=== PATIENT | female | born 1975 | race American Indian/Alaskan Native ===

== ENCOUNTER 2016-04-26 10:36 | Day surgery (SDC) | payer OTHER ==
[~2016-04-26 10:36] MED LIST: ANCEF/STERILE WATER 2 GM/20 ML IV NR
[2016-04-26] MEDS ORDERED: NACL BACTERIOSTATIC INFILTRATI ONE (12:27)
[2016-04-26] MEDS ORDERED: ZOFRAN IV PRN (12:35)
[2016-04-26] MEDS ORDERED: VERSED IV NR (13:00)
[2016-04-26] MEDS ORDERED: LACTATED RINGERS 1,000 ML IV SCH ×2 (13:00)
[2016-04-26] MEDS ORDERED: SUBLIMAZE ONE (13:51)
[2016-04-26] MEDS ORDERED: DIPRIVAN 10 MG/ML IV ONE ×2 (13:51→15:28)
[2016-04-26] MEDS ORDERED: XYLOCAINE MPF 2% ONE (13:52)
[2016-04-26] MEDS ORDERED: DECADRON ONE (14:14)
[2016-04-26] MEDS ORDERED: ZOFRAN ONE (14:14)
[2016-04-26] MEDS ORDERED: ROBINUL ONE (14:15)
--- NOTE | 2016-04-26 14:15 | Post Operative Note ---
Date of procedure: 04/26/16 Pre-op diagnosis: R upj stone Post-op diagnosis: same Findings: as above Procedure: cysto r stent eswl rpg Anesthesia: GETA Surgeon: THEODORE LEWIS Estimated blood loss: none Pathology: none Condition: stable Disposition: PACU
--- NOTE | 2016-04-26 14:17 | Discharge Summary ---
Short Stay Discharge Plan Activity: other (no straining ) Weight Bearing Status: Full Weight Bearing Diet: low fat, low cholesterol, low salt Special Instructions: other (inc fluids ) Durable Medical Equipment Needed Upon Discharge: other (j stent ) Follow up with: PRIMARY CARE, [Primary Care Provider] - 7 Days THEODORE LEWIS MD [Staff Physician] - 7 Days
[2016-04-26] MEDS ORDERED: WATER FOR IRRIG STERILE IR ONE (14:33)
[2016-04-26] MEDS ORDERED: LACTATED RINGERS 1,000 ML ONE (14:37)
[2016-04-26] MEDS ORDERED: LASIX ONE (14:58)
[2016-04-26] MEDS ORDERED: DILAUDID ONE (15:31)
[2016-04-26] MEDS: DILAUDID IV PRN ×2 (16:34→16:45)
[2016-04-26 17:19] VITALS: BP 143/70
--- NOTE | 2016-04-26 18:52 | Operative Report ---
PREOPERATIVE DIAGNOSES: Right ureteral stone, right flank pain. POSTOPERATIVE DIAGNOSES: Right ureteral stone, right flank pain. PROCEDURE: Right lithotripsy with approximately 1000 shocks followed by cystoscopy, stent placement and another 1000 shocks of lithotripsy. SURGEON: Toni Do MD ANESTHESIA: General. FINDINGS: This is a woman with right flank pain and hydronephrosis. She now presents for treatment. All risks and complications were discussed. DESCRIPTION OF PROCEDURE: The patient was brought to the operating room and placed on the operating table. Following the induction of anesthesia, stone was well localized, both the AP and oblique image. After about 900 shocks could no longer see the stone well. We lowered the shock yet, could not see the stone well, whether it moved or not we were not sure. Cystoscopy was carried out and showed a small piece in that area, so we placed a double-J stent alongside the stone and we gave another 1000 shocks. We could no longer see any more stone along the stent. The patient tolerated the procedure well. KVS was started at 1, max of 5. The patient tolerated the procedure well and brought to Recovery in stable condition. She has a double-J stent, which was a 24 cm 4.8 [place], brought to Recovery in stable condition. JOB# [id number] ANIL/GRACIELA
== END 2016-04-26 17:10 | disposition home or self-care (01) ==
LOC: OR 10:36
PROVIDERS: ATTEND Urology
DX: N20.1 Calculus of ureter (principal); F17.210 Nicotine dependence, cigarettes, uncomplicated
CPT/HCPCS: 50590; 52332; A4217; C1758; C1769; C2617; J0690; J1100; J1170; J1940; J2250; J2405; J2704; J3010; J7120; Q9967

== ENCOUNTER 2016-05-17 09:38 | Day surgery (SDC) | payer OTHER ==
[2016-05-17] MEDS ORDERED: XYLOCAINE MPF 2% ONE (10:17)
[2016-05-17] MEDS ORDERED: DIPRIVAN 10 MG/ML IV ONE (10:17)
[2016-05-17] MEDS ORDERED: SUBLIMAZE ONE (10:18)
[2016-05-17] MEDS ORDERED: NACL BACTERIOSTATIC INFILTRATI ONE (10:34)
--- NOTE | 2016-05-17 10:52 | Anesthesia Day of Surgery ---
Anesthesia Day of Surgery - Day of Surgery Patient Examined: Yes Patient H&P Reviewed: Yes Patient is NPO: Yes
--- NOTE | 2016-05-17 10:53 | Anesthesia Consultation ---
Anesthesia Consult and Med Hx Date of service: 05/17/16 - Airway Anesthetic Teeth Evaluation: Good ROM Head & Neck: Adequate Mental/Hyoid Distance: Adequate Mallampati Class: Class II Intubation Access Assessment: Probably Good - Pulmonary Exam CTA: Yes - Cardiac Exam Cardiac Exam: RRR - Pre-Operative Health Status ASA Pre-Surgery Classification: ASA2 Proposed Anesthetic Plan: General - Pulmonary Hx Smoking: Yes (3 PER DAY X 10 YRS) SOB: No Hx Sleep Apnea: No (MANUEL PRE SCREEN LOW RISK) - Cardiovascular System Hx Hypertension: No - Central Nervous System Hx Neuromuscular Disorder: (pseudotumor cerebri) Hx Seizures: No CVA: No Hx Psychiatric Problems: No - Endocrine Hx Renal Disease: No (stones) Hx Insulin Dependent Diabetes: No Hx Thyroid Disease: No - Hematic Hx Anemia: Yes (RESOLVED WITH HYST.) Hx Sickle Cell Disease: No - Other Systems Hx Alcohol Use: Yes (SOCIALLY) Hx Substance Use: Yes (MARIJUANA 2-3 X PER WEEK.) Hx Cancer: No
[2016-05-17] MEDS ORDERED: ZOFRAN IV PRN (10:54)
[2016-05-17] MEDS ORDERED: DILAUDID IV PRN (10:54)
[2016-05-17] MEDS ORDERED: ANCEF/STERILE WATER 2 GM/20 ML 2 GM/20 ML SYRINGE IV NR (11:00)
[2016-05-17] MEDS ORDERED: PEPCID PO NR (11:00)
[2016-05-17] MEDS ORDERED: NACL 0.9% 1000 ML 1,000 ML IV SCH (11:00)
[2016-05-17] MEDS ORDERED: VERSED IV NR (11:00)
[2016-05-17] MEDS ORDERED: WATER FOR IRRIG STERILE IR ONE (12:00)
[2016-05-17] MEDS ORDERED: ZOFRAN ONE (12:00)
[2016-05-17] MEDS ORDERED: ePHEDrine SULFATE ONE (12:01)
--- NOTE | 2016-05-17 12:58 | Post Anesthesia Evaluation ---
- Post Anesthesia Evaluation Patient Participated: Yes Airway Patent: Yes Stable Respiratory Function: Yes Nausea/Vomiting: No Temp > 96.8F: Yes Pain Manageable: Yes Adequeate Hydration: Yes Anesthesia Complications: No Block Receding Appropriately: Not Applicable Patient on Ventilator: No
--- NOTE | 2016-05-17 13:05 | Post Operative Note ---
Date of procedure: 05/17/16 Pre-op diagnosis: r upper ureteral stone Post-op diagnosis: same Findings: as above Procedure: cysto r rpg ureteroscopy j stent laser Anesthesia: GETA Surgeon: THEODORE LEWIS Estimated blood loss: minimal Pathology: none Condition: stable Disposition: PACU
--- NOTE | 2016-05-17 13:06 | Discharge Summary ---
Short Stay Discharge Plan Activity: other (no straining ) Weight Bearing Status: Full Weight Bearing Diet: regular, low salt Special Instructions: other (inc fluids ) Durable Medical Equipment Needed Upon Discharge: other (pt has j stent ) Follow up with: PRIMARY CARE, [Primary Care Provider] - 7 Days THEODORE LEWIS MD [Staff Physician] - 7 Days
[2016-05-17 14:00] VITALS: BP 146/80
--- NOTE | 2016-05-17 14:02 | Operative Report ---
PREOPERATIVE DIAGNOSES: Right upper ureteral stone with failed lithotripsy. POSTOPERATIVE DIAGNOSES: Right upper ureteral stone with ____ failed lithotripsy. PROCEDURE: Cystoscopy, retrograde ureteroscopy with laser of the stone, pushing back the stone to the renal pelvis and double-J stent exchange. SURGEON: Toni Do MD ANESTHESIA: General. FINDINGS: This woman with a stone which failed to fragment on the ESWL. She now presents for a followup procedure. DESCRIPTION OF PROCEDURE: The patient was brought to the operating room and placed on the operating table. Following induction of anesthesia, placed in the lithotomy position, prepped and draped in usual sterile fashion. The stent was withdrawn from the meatus. A wire coiled in the kidney. I can see the stone in the mid upper ureter. A second wire with an open-ended double lumen catheter was placed as well. Flexible ureteroscopy showed an impacted stone. Once we withdrew one of the wires, we could see the stone in the wall and lasered it into multiple fragments. Many of the fragments went up to the kidney, which we followed and we broke them up as best possible. The patient tolerated the procedure well. A wire was placed through the flexible scope in the renal pelvis and a 7-Azeri double J coiled in the kidney and bladder. The patient tolerated the procedure well and brought to recovery in stable condition. JOB# [id number] ANIL/GRACIELA
--- NOTE | 2016-05-18 07:57 | Fluoroscopy Report ---
FLUOROSCOPY RETROGRADE UROGRAPHY History: Calculus of right kidney. Findings: Fluoroscopy was provided by radiology during retrograde urography by urology. 7 fluoroscopic images were captured. Foundation Engineer film of the abdomen demonstrates a right ureteral stent which appears in good position. Operative notes mention replacement of the right ureteral stent as well as removal of a right ureteral stone. Please correlate with procedural notes. The right ureteral stent is in good position on the final image. The left pyelogram was not performed. Impression: Right ureteral stent replacement. Right ureteral stone removed.
== END 2016-05-17 14:00 | disposition home or self-care (01) ==
LOC: OR 09:38
PROVIDERS: ATTEND Urology
DX: N20.1 Calculus of ureter (principal); Z87.891 Personal history of nicotine dependence; Z90.49 Acquired absence of other specified parts of digestive tract; Z90.710 Acquired absence of both cervix and uterus; F12.90 Cannabis use, unspecified, uncomplicated; D64.9 Anemia, unspecified; Z87.442 Personal history of urinary calculi
CPT/HCPCS: 52356; 74420; A4217; C1758; C1769; C2617; J0690; J2250; J2405; J2704; J3010; J7030; Q9967